=== PATIENT | male | born 1940 | race Caucasian/White ===

== ENCOUNTER 2020-08-21 09:12 | Day surgery (SDC) | payer MEDICARE ==
[~2020-08-21 09:12] MED LIST: BALANCED SALT IRRIG SOLN COMB2 15 ML BOTTLE ONE; BUPIVACAINE HCL 0.75% INJ/PF (7.5 MG/1 ML) 10 ML SDV ONE; LIDOCAINE 2%/EPINEPHRINE INJ 20 ML VIAL ONE; POVIDONE-IODINE 5% OPH PREP SOLN 30 ML ONE; TETRACAINE HCL 0.5% OPH SOLN 4 ML ONE; THROMBIN (BOVINE) TOPICAL 5000 UNIT VIAL ONE
[2020-08-21] MEDS ORDERED: MIDAZOLAM 2 MG/2 ML INJ ONE (09:57)
[2020-08-21] MEDS ORDERED: FENTANYL CITRATE INJ/PF 100 MCG/2 ML AMPUL ONE (11:05)
[2020-08-21] MEDS: NEO/POLYMYX B SULF/DEXAMETH OPH OINTMENT 3.5 GM ONE ×2 (12:25)
--- NOTE | 2020-08-21 12:45 | Operative Report ---
Operative Report-[facility] Operative Report: DATE OF SURGERY: 08/21/2020 PREOPERATIVE DIAGNOSIS: Bilateral upper eyelid Dermatochalasis with visual field loss , 5 mm cyst right lower lid POSTOPERATIVE DIAGNOSIS: Bilateral upper eyelid Dermatochalasis with visual field loss , 5 mm cyst right lower lid PROCEDURE PERFORMED: Bilateral upper eyelid blepharoplasty with excision of right lower eyelid cyst SURGEON: Paulina Kang MD ANESTHESIA: Local with MAC INDICATION FOR SURGERY: Upper eyelid skin blocking vision and having to eyelids wide to see. PROCEDURE: The patient was brought to the operating room and both upper eyelids were sterilely prepped and draped in the usual manner. Tetracaine drops were placed in the eyes. Attention was directed to both upper lids where the upper lid crease was marked and 0.3 mm forceps were used to estimate the excess upper eyelid skin to be excised. This was marked in an elliptical fashion. Local anes thesia was administered. This consisted of 2% Xylocaine with epinephrine mixed with 0.75% Marcaine. Approximately 2.5 mL's of this was used to infiltrate both upper eyelids in the previous marked areas and the local anesthetic was diffuse with a Q-tip. The lower eyelid cyst was also anesthetized attention was directed to the left upper lid where the elliptical of skin was removed. Hemostasis was obtained with bipolar cautery. The orbital septum was opened and prolapse retroseptal fat was grasped with a hemostat, cut and cauterized. Thrombin soaked on a pad was placed on the incision. Identical procedure was performed on the right upper lid. The right lower eyelid cyst was excised with scissors. Upper eyelid wound closure was completed with 3 interrupted 6-0 silk sutures, equally spaced through both upper lids, taking a deep bite of the fascia. This was followed by a running 6-0 nylon suture. There was full closure of the lids and good hemostasis at the end of the surgery. Maxitrol ointment was placed on both upper lids and the lower lid excision area of the right eyelid. Patient tolerated procedure well and sent to recovery room and in good condition.
== END 2020-08-21 12:57 | disposition home or self-care (01) ==
LOC: SC 09:12
PROVIDERS: ATTEND Ophthalmology
DX: H02.831 Dermatochalasis of right upper eyelid (principal); H02.834 Dermatochalasis of left upper eyelid; H02.822 Cysts of right lower eyelid; H53.453 Other localized visual field defect, bilateral; E78.00 Pure hypercholesterolemia, unspecified; E03.9 Hypothyroidism, unspecified; I25.10 Atherosclerotic heart disease of native coronary artery without angina pectoris; Z87.891 Personal history of nicotine dependence; Z01.812 Encounter for preprocedural laboratory examination; Z20.828 Contact with and (suspected) exposure to other viral communicable diseases
CPT/HCPCS: 00103; 15823; 67840; U0003; J2250; J3490 ×6; A9270; C9803; 103; 87635; J3010

== ENCOUNTER 2020-09-28 12:42 | Emergency (ER) | payer MEDICARE, OTHER ==
[2020-09-28] MEDS ORDERED: ONDANSETRON HCL INJ/PF 4 MG/2 ML SDV IV ONE (13:48)
--- NOTE | 2020-09-28 13:50 | ER Document Report ---
ED Medical Screen (RME) - General Chief Complaint: Abdominal Pain Stated Complaint: FEVER, COUGH, CHILLS, Time Seen by Provider: 09/28/20 13:43 Primary Care Provider: RADHA BILL [Primary Care Provider] - Follow up as needed Notes: Patient is a 79-year-old male who presents the emergency department with a cough and a fever. Patient is a poor historian and states, "I am tired of feeling sick." He does not provide any history, but according to the notes his sent, he has not been eating for the past 5 days. Patient reports that he is nauseous, but has not vomited. Dates he is having normal bowel movements. Denies any diarrhea. Denies any contact with anybody tested positive for COVID- 19. Exam: Distended abdomen. I have greeted and performed a rapid initial assessment of this patient. A comprehensive ED assessment and evaluation of the patient, analysis of test results and completion of medical decision making process will be conducted by an additional ED providers. TRAVEL OUTSIDE OF THE [place] IN LAST 30 DAYS: No - Related Data Allergies/Adverse Reactions: morphine [Morphine] Allergy (Severe, Verified 07/15/11 11:43) Combative, confusion codeine [Codeine] Allergy (Intermediate, Verified 07/15/11 11:41) Itching, hyperactivity Past Medical History - Past Medical History Cardiac Medical History: Reports: Hx Hypertension Denies: Hx Coronary Artery Disease, Hx Heart Attack Pulmonary Medical History: Denies: Hx Asthma, Hx Bronchitis, Hx COPD, Hx Pneumonia Neurological Medical History: Denies: Hx Cerebrovascular Accident, Hx Seizures GI Medical History: Denies: Hx Hepatitis, Hx Hiatal Hernia, Hx Ulcer Musculoskeltal Medical History: Reports Hx Arthritis Infectious Medical History: Denies: Hx Hepatitis Past Surgical History: Denies: Hx Open Heart Surgery, Hx Pacemaker - Immunizations Hx Diphtheria, Pertussis, Tetanus Vaccination: Yes Physical Exam - Vital signs Vitals: Temp Pulse Resp BP Pulse Ox 98.1 F 87 20 156/62 H 96 09/28/20 12:51 09/28/20 12:51 09/28/20 12:51 09/28/20 12:51 09/28/20 12:51 Course - Vital Signs Vital signs: Temp Pulse Resp BP Pulse Ox 98.1 F 87 20 156/62 H 96 09/28/20 12:51 09/28/20 12:51 09/28/20 12:51 09/28/20 12:51 09/28/20 12:51 Doctor's Discharge - Discharge Referrals: FLY,NO [Primary Care Provider] - Follow up as needed
--- NOTE | 2020-09-28 14:37 | RADIOLOGY REPORT (SQ) ---
EXAM DESCRIPTION: CHEST SINGLE VIEW IMAGES COMPLETED DATE/TIME: 09/28/2020 2:19 pm REASON FOR STUDY: cough; fever COMPARISON: 12/01/2011. EXAM PARAMETERS: NUMBER OF VIEWS: One view. TECHNIQUE: Single frontal radiographic view of the chest acquired. RADIATION DOSE: NA LIMITATIONS: None. FINDINGS: LUNGS AND PLEURA: Faint patchy airspace disease in both lungs. MEDIASTINUM AND HILAR STRUCTURES: No masses. Contour normal. HEART AND VASCULAR STRUCTURES: Mild cardiomegaly. Normal vasculature. BONES: No acute findings. Degenerative changes in the spine and shoulders. HARDWARE: None in the chest. OTHER: No other significant finding. IMPRESSION: FAINT PATCHY AIRSPACE DISEASE IN BOTH LUNGS, CONCERNING FOR PNEUMONIA. TECHNICAL DOCUMENTATION: JOB ID: [id number] 2010 [employer]- All Rights Reserved Reading location - IP/workstation name: [email or web address]
[2020-09-28 16:19] LABS: ABSOLUTE LYMPHOCYTES (AUTO) 0.7 10^3/uL (0.5-4.7); ABSOLUTE MONOCYTES (AUTO) 0.4 10^3/uL (0.1-1.4); LYMPHOCYTES % (AUTO) 12.5 % (13-45); RED BLOOD COUNT 4.15 10^6/uL (4.35-5.55); TOTAL CELLS COUNTED % (AUTO) 100 %
[2020-09-28 16:39] LABS: ALBUMIN 3.7 g/dL (3.5-5.0); ALKALINE PHOSPHATASE 74 U/L (38-126); ANION GAP 10 (5-19); ASPARTATE AMINO TRANSFERASE 63 U/L (17-59); BILIRUBIN,DIRECT 0.5 mg/dL (0.0-0.4); BILIRUBIN,TOTAL 0.7 mg/dL (0.2-1.3); BLOOD UREA NITROGEN 13 mg/dL (7-20); CALCIUM 8.8 mg/dL (8.4-10.2); CARBON DIOXIDE 23 mmol/L (22-30); CHLORIDE 106 mmol/L (98-107); GLUCOSE 110 mg/dL (75-110); POTASSIUM 3.8 mmol/L (3.6-5.0)
[2020-09-28 16:40] LABS: ABSOLUTE NEUT (AUTO) 4.6 10^3/uL (1.7-8.2); BASOPHILS % (AUTO) 0.6 % (0-2); EOSINOPHILS % (AUTO) 0.7 % (0-6); HEMATOCRIT 37.7 % (37.9-51.0); HEMOGLOBIN 13.2 g/dL (13.5-17.0); MEAN CORPUSCULAR HEMOGLOBIN 31.8 pg (27.0-33.4); MEAN CORPUSCULAR VOLUME 91 fl (80-97); MONOCYTES % (AUTO) 7.5 % (3-13); PLATELET COUNT 257 10^3/uL (150-450); RED CELL DISTRIBUTION WIDTH 15.7 % (11.5-14.0); SEGMENTED NEUTROPHILS % (AUTO) 78.7 % (42-78); WHITE BLOOD COUNT 5.8 10^3/uL (4.0-10.5)
--- NOTE | 2020-09-28 16:41 | ER Document Report ---
ED General - General Chief Complaint: Abdominal Pain Stated Complaint: FEVER, COUGH, CHILLS, Time Seen by Provider: 09/28/20 13:43 Primary Care Provider: RADHA BILL [NO LOCAL MD] - Follow up as needed TRAVEL OUTSIDE OF THE [place] IN LAST 30 DAYS: No - HPI Notes: 79-year-old male presents with feeling sick. Patient states that he has not had much to eat in the past 5 days. States he has had no appetite. Reports generalized weakness and having a sour stomach. States he has nausea, no vomiting or diarrhea. He denies abdominal pain. He has had fever and cough. There is a very detailed note provided by his . On September 22 patient had temperature of 99F, he had no appetite and slept all day. On September 23 Hartmann 100.1F, his O2 saturations were 92 to 94%, he did not eat any food. He had "a 30 second seizure in arms", the note states that EMS was called and he was checked out. However the this day he began to develop some shortness of breath. He was able to tolerate 2 Powerades. Start on guaifenesin. On the he was more short of breath, he did eat some food, temperature 100F, 90%. temperature 100.9F, 92%. September 26, he actually did eat some food that day. And today apparently reported he "had enough of feeling bad". There is medical record provided which indicates he has a history of hypertension, COPD, CAD, hypothyroidism, rheumatoid arthritis and he is on prednisone, hydroxychloroquine, sulfasalazine, methotrexate. - Related Data Allergies/Adverse Reactions: morphine [Morphine] Allergy (Severe, Verified 07/15/11 11:43) Combative, confusion codeine [Codeine] Allergy (Intermediate, Verified 07/15/11 11:41) Itching, hyperactivity Past Medical History - General Information source: Patient - Social History Smoking Status: Former Smoker Family History: Reviewed & Not Pertinent - Past Medical History Cardiac Medical History: Reports: Hx Hypertension Denies: Hx Coronary Artery Disease, Hx Heart Attack Pulmonary Medical History: Denies: Hx Asthma, Hx Bronchitis, Hx COPD, Hx Pneumonia Neurological Medical History: Denies: Hx Cerebrovascular Accident, Hx Seizures GI Medical History: Denies: Hx Hepatitis, Hx Hiatal Hernia, Hx Ulcer Musculoskeletal Medical History: Reports Hx Arthritis Infectious Medical History: Denies: Hx Hepatitis Past Surgical History: Denies: Hx Open Heart Surgery, Hx Pacemaker - Immunizations Hx Diphtheria, Pertussis, Tetanus Vaccination: Yes Review of Systems - Review of Systems Constitutional: Chills, Fever EENT: No symptoms reported Cardiovascular: denies: Chest pain Respiratory: Cough, Short of breath Gastrointestinal: Poor appetite. denies: Abdominal pain, Diarrhea, Vomiting Genitourinary: No symptoms reported Male Genitourinary: No symptoms reported Musculoskeletal: No symptoms reported Skin: No symptoms reported Hematologic/Lymphatic: No symptoms reported Neurological/Psychological: No symptoms reported Physical Exam - Vital signs Vitals: Temp Pulse Resp BP Pulse Ox 98.1 F 87 20 156/62 H 96 09/28/20 12:51 09/28/20 12:51 09/28/20 12:51 09/28/20 12:51 09/28/20 12:51 - General General appearance: Appears well, Alert In distress: None - HEENT Head: Normocephalic, Atraumatic Extraocular movements intact: Yes Pupils: PERRL - Respiratory Respiratory status: No: Labored, Tachypnea Breath sounds: Rhonchi - Cardiovascular Rhythm: Regular Heart sounds: Normal auscultation - Abdominal Inspection: Obese Distension: No distension Bowel sounds: Normal Tenderness: Nontender - Extremities General lower extremity: No: Edema - Neurological Neuro grossly intact: Yes Cognition: Normal - Psychological Associated symptoms: Normal affect - Skin Skin Temperature: Warm Course - Re-evaluation Re-evalutation: 79-year-old male arrives from home with fever, cough, shortness of breath, poor appetite. His has provided very detailed list of his recent illnesses, he has been sick since September 22. I do suspect that he likely has Covid. He is alert and well-appearing, he is 96% on room air, faint rhonchi at bases but overall good air movement. He has no abdominal tenderness. Chest x-ray obtained prior to evaluation does show subtle bilateral infiltrates, therefore raising more suspicion for Covid, test has been ordered. Other viral illness a possibility as well. I would have a low suspicion for acute intra-abdominal pathology given his benign exam. Laboratory evaluation done through triage is grossly unremarkable. Will treat symptomatically with Decadron, guaifenesin and small fluid bolus. 09/28/20 18:43 +COVID 09/28/20 19:13 Into check on patient, he reports he is feeling better. He has not had any hypo thea while in the emergency department. We will touch base with his to assure that she is comfortable with him coming home. 09/28/20 19:23 Updated patient's on results. She is a former [employer] and she is comfortable with him coming home. I discussed continue supportive care. Return precautions discussed, stable at time of discharge. - Vital Signs Vital signs: Temp Pulse Resp BP Pulse Ox 98.7 F 85 20 124/65 95 09/28/20 19:09 09/28/20 19:09 09/28/20 19:09 09/28/20 19:09 09/28/20 19:09 - Laboratory Results Result Diagrams: 09/28/20 15:51 09/28/20 15:51 Laboratory Results Interpreted: 09/28/20 09/28/20 15:51 15:51 RBC 4.15 L Hgb 13.2 L Hct 37.7 L RDW 15.7 H Lymph % (Auto) 12.5 L Seg Neutrophils % 78.7 H Direct Bilirubin 0.5 H AST 63 H Critical Laboratory Results Reviewed: No Critical Results - Radiology Results Critical Radiology Results Reviewed: No Critical Results Discharge - Discharge Clinical Impression: COVID-19 virus infection Disposition: HOME, SELF-CARE Additional Instructions: Please continue symptomatic control for your Covid infection. Increase to full dose aspirin daily. Continue multivitamin, be sure that it includes vitamin C and vitamin D, you may also begin the use of zinc therapy. Check to see if the store has any Emergen-C as this contains a good amount of zinc. Continue to use the pulse ox at home. If his saturations drop below 93%, you may wish to start his home oxygen and bring him back to the emergency department for further evaluation. Return to the emergency department for any concerning worsening symptoms. Prescriptions: Azithromycin [Zithromax 250 mg Tablet] 250 mg PO ASDIR PRN #6 tablet PRN Reason: Referrals: LOCALMD,NO [NO LOCAL MD] - Follow up as needed
[2020-09-28] MEDS ORDERED: DEXAMETHASONE SOD PHOSPHATE INJ 4 MG/1 ML VIAL IV ONE (17:10)
[2020-09-28] MEDS ORDERED: AZITHROMYCIN INJ 500 MG VIAL IV ONE (17:14)
[2020-09-28] MEDS ORDERED: GUAIFENESIN 600 MG TABLET.SA PO ONE (17:17)
[2020-09-28] MEDS ORDERED: RINGERS SOLUTION,LACTATED 500 ML IV ONE (17:18)
[2020-09-28 19:10] VITALS: BP 124/65
== END 2020-09-28 19:36 | disposition home or self-care (01) ==
LOC: ER 12:42
DX: U07.1 COVID-19 (principal); R05 Cough; R63.0 Anorexia; R53.1 Weakness; R11.0 Nausea; R50.9 Fever, unspecified; R06.02 Shortness of breath; I10 Essential (primary) hypertension; M06.9 Rheumatoid arthritis, unspecified; Z79.52 Long term (current) use of systemic steroids; Z79.899 Other long term (current) drug therapy; Z88.6 Allergy status to analgesic agent; Z88.5 Allergy status to narcotic agent; Z87.891 Personal history of nicotine dependence
CPT/HCPCS: 99284; 96375; 96365; 36415; 87070; 87880; 83690; 85025; 0241U ×4; 80053; 71045; J1100; A9270; J2405; J7120; J0456; C9803